=== PATIENT | female | born 1950 | race Asian ===

== ENCOUNTER → 2016-11-28 | Outpatient (CLI) | payer OTHER, MEDICAID | LOC: CIMAGING 07:33 | DX: Z12.31 Encounter for screening mammogram for malignant neoplasm of breast (principal) | CPT/HCPCS: G0202 ==

== ENCOUNTER → 2017-01-04 | Outpatient (CLI) | payer OTHER, MEDICAID | LOC: CIMAGING 12:59 | DX: R92.8 Other abnormal and inconclusive findings on diagnostic imaging of breast (principal) | CPT/HCPCS: G0204 ==